=== PATIENT | female | born 1955 | race Caucasian/White ===

== ENCOUNTER 2020-06-01 09:24 | Outpatient (RCR) | payer MEDICARE, BC, SELFPAY ==
[2013-05-02 09:03] VITALS: BMI 26.6
[2020-06-01] MEDS: COVID-19 VACC, MRNA(PFIZER)/PF 30 MCG/0.3 ML SYRINGE IM (13:04)
[2020-06-23] MEDS: COVID-19 VACC, MRNA(PFIZER)/PF 30 MCG/0.3 ML SYRINGE IM (10:38)
== END 2020-09-01 23:59 ==
LOC: IMMUN 09:24
PROVIDERS: PCP Internal Medicine; Visit Provider Family Medicine
DX: Z23 Encounter for immunization (principal)
CPT/HCPCS: 0001A; 0002A; 91300; 91301